=== PATIENT | female | born 1960 | race Caucasian/White ===

== ENCOUNTER 2017-01-06 06:26 | Day surgery (SDC) | payer MEDICAID ==
--- NOTE | 2017-01-06 06:04 | PCM.HP ---
H&P History of Present Illness - General Date of Service: 01/06/17 Admit Problem/Dx: chronic abdominal pain, diarrhea, weight loss, heartburn, Kent's esophagus, dysphagia, hx of tarry stools, fecal urgency, fecal incontinence, hx of greasy stools Source of Information: Patient History Limitations: Reports: No Limitations - History of Present Illness Initial Comments - Free Text/Narative: The patient is a 56-year-old female referred by Bertha Naik NP for colonoscopy, EGD to monitor Kent's esophagus The patient was initially evaluated on 12/01/16. She denies any changes to her medical history since that time. She did follow up with cardiology and [facility] as recommended. She has intermittent claudication and chronic chest pain. Dr. Choudhury in cardiology did no feel her chest pain was cardiac in origin as her recent stress test was negative for ischemia. She has a Occluded right superficial femoral artery (SFA) CTVS did not recommend surgery at this point, continued conservative therapy with Pletal was recommended. Last dose of Pletal was Wednesday. She continues to have diarrhea stools and lower abdominal pain. She denies reflux/heartburn, controlled with Nexium. She reports the chronic chest pain is actually improved. She did start smoking again 07/29 PPD. Her mood is better off the Chantix. she did finish all but 8 oz of the prep. she is having liquid colored stools. - Related Data Allergies/Adverse Reactions: Allergies Allergy/AdvReac Type Severity Reaction Status Date / Time No Known Allergies Allergy Verified 09/17/14 15:36 Home Medications: Home Meds Albuterol [Proair HFA] 1 - 2 puff INH Q4H 01/05/17 [History] Aspirin [Aspirin] 325 mg PO DAILY 01/05/17 [History] Cilostazol [Pletal] 100 mg PO BID 01/05/17 [History] Esomeprazole [NexIUM] 40 mg PO DAILY 01/05/17 [History] FLUoxetine HCl [Fluoxetine HCl] 10 mg PO DAILY 01/05/17 [History] Gabapentin [Gabapentin] 100 mg PO TID 01/05/17 [History] LORazepam [Ativan] 0.5 mg PO TID 01/05/17 [History] Nitroglycerin [Nitrostat] 0.4 mg SL ASDIRECTED PRN 01/05/17 [History] Past Medical History HEENT History: Reports: None Cardiovascular History: Reports: PVD, Other (See Below) Other Cardiovascular History: throbectomy and common femoral endarterectomy, heart cath, bradycardia, PAD Respiratory History: Reports: COPD Gastrointestinal History: Reports: Diverticulosis, Other (See Below) Other Gastrointestinal History: abdominal pain, diarrhea, weight loss, heartburn , kent's esophagus, dysphagia, tarry stools, fecal urgency and incontinence, greasy stools, ventral hernia Genitourinary History: Reports: Other (See Below) Other Genitourinary History: bladder dilation, kidney stones, ovarian fibroma 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 Musculoskeletal History: Reports: None Neurological History: Reports: None Psychiatric History: Reports: Other (See Below) Other Psychiatric History: nicotine addiction, panic attacks Endocrine/Metabolic History: Reports: None Hematologic History: Reports: None Immunologic History: Reports: None Oncologic (Cancer) History: Reports: None Dermatologic History: Reports: None - Past Surgical History Head Surgeries/Procedures: Reports: None GI Surgical History: Reports: Colonoscopy, EGD Social & Family History - Tobacco Use Smoking Status *Q: Current Every Day Smoker - Caffeine Use Caffeine Use: Reports: Coffee - Recreational Drug Use Recreational Drug Use: No Drug Use in Last 12 Months: No H&P Review of Systems - Review of Systems: Review Of Systems: See Below Free Text/Narrative: Has exertional chest pain and chest pain at rest. Has shortness of breath with chest pain. No history of any easy bleeding. Hx of easy bruising. No personal or familial history of clotting or bleeding disorders. No history of anesthetic complications. No history of familial anesthetic complications. NO: upper respiratory symptoms in the last two weeks. No history of anemia. No history of seizure or stroke. No history of fever, chills. Occasional night sweats. All other systems reviewed and were negative except as per history of present illness. General: Reports: No Symptoms. Denies: Fever, Chills HEENT: Reports: No Symptoms Pulmonary: Reports: No Symptoms Cardiovascular: Reports: No Symptoms, Other (see hpi) Gastrointestinal: Reports: Other (see hpi) Genitourinary: Reports: No Symptoms Musculoskeletal: Reports: No Symptoms Skin: Reports: No Symptoms Psychiatric: Reports: No Symptoms Neurological: Reports: No Symptoms Hematologic/Lymphatic: Reports: No Symptoms Immunologic: Reports: No Symptoms Exam - Exam Exam: See Below - Exam General: Alert, Oriented, Cooperative HEENT: No: Scleral Icterus Lungs: Clear to Auscultation, Normal Respiratory Effort Cardiovascular: Regular Rate, Regular Rhythm, Normal S1, Normal S2 Abdomen: Soft Back Exam: Normal Inspection, Full Range of Motion Extremities: Normal Inspection. No: Clubbing, Edema Skin: Warm, Dry, Intact Neuro Extensive - Mental Status: Alert, Oriented x3, Normal Mood/Affect, Normal Cognition, Memory Intact Psychiatric: Alert, Normal Affect, Normal Mood *Q Meaningful Use (ADM) - VTE *Q VTE Criteria *Q: - Stroke *Q Stroke Criteria *Q: - AMI *Q AMI Criteria *Q: - Problem List (1) Diarrhea SNOMED Code(s): 07492703 ICD Code: R19.7 - DIARRHEA, UNSPECIFIED Status: Acute Current Visit: Yes Qualifiers: Diarrhea type: unspecified type Qualified Code(s): R19.7 - Diarrhea, unspecified (2) Weight loss SNOMED Code(s): 257723637, 083813977 ICD Code: R63.4 - ABNORMAL WEIGHT LOSS Status: Acute Current Visit: Yes (3) Heartburn SNOMED Code(s): 20778833 ICD Code: R12 - HEARTBURN Status: Acute Current Visit: Yes (4) Barretts esophagus SNOMED Code(s): 612950881 ICD Code: K22.70 - KENT'S ESOPHAGUS WITHOUT DYSPLASIA Status: Acute Current Visit: Yes Qualifiers: Kent's esophagus type: without dysplasia Qualified Code(s): K22.70 - Kent's esophagus without dysplasia (5) Chronic abdominal pain SNOMED Code(s): 860707154 ICD Code: R10.9 - UNSPECIFIED ABDOMINAL PAIN; G89.29 - OTHER CHRONIC PAIN Status: Acute Current Visit: Yes Problem List Initiated/Reviewed/Updated: Yes Orders Last 24hrs: Active Orders 24 hr Category Date Time Status Peripheral IV Care [RC] . DIRECTED Care 01/06/17 07:00 Active Verify Patient Consent Obtain [RC] ASDIRECTED Care 01/06/17 07:00 Active Lactated Ringers [Ringers, Lactated] 1,000 ml Med 01/06/17 07:00 Active IV ASDIRECTED Lidocaine 1%/Sod Bicarbonate [Buffered Lidocaine 1% in Med 01/06/17 07:00 Active NS 8.4%] 0.25 ml IV ONETIME PRN Sodium Chloride 0.9% [Saline Flush] Med 01/06/17 07:00 Active 10 ml FLUSH ASDIRECTED PRN Medication Administration Instruction [OM.PC] Routine Oth 01/06/17 07:00 Ordered Peripheral IV Insertion Adult [OM.PC] Routine Oth 01/06/17 07:00 Ordered Medication Orders Lactated Ringer's (Ringers, Lactated) 1,000 mls @ 125 mls/hr IV ASDIRECTED ANGELI Lidocaine/Sodium Bicarbonate (Buffered Lidocaine 1% In Ns 8.4%) 0.25 ml IV ONETIME PRN PRN Reason: Prior to IV Start Sodium Chloride (Saline Flush) 10 ml FLUSH ASDIRECTED PRN PRN Reason: Keep Vein Open Assessment/Plan Comment:: 56yr female with chronic abdominal pain, diarrhea, weight loss, heartburn, Kent's esophagus, dysphagia, hx of tarry stools, fecal urgency, fecal incontinence, hx of greasy stools, need for diagnostic EGD and diagnostic colonoscopy Patient has exertional chest pain and shortness of breath. PLAN: We discussed performing a diagnostic EGD and diagnostic colonoscopy. We discussed the risks and benefits, including, pain, bleeding, infection, damage to surrounding structures, need for additional procedures and bowel perforation. This procedure will be done at [facility] due to cardiac hx, pending CTVS and cardiology evaluation for chest pain and claudication symptoms. This patient was evaluated with Dr. Keerthi Smith, plan formulated by Dr. Keerthi Smith. Halina Mcneill NP scribing for Dr. Keerthi Smith
[2017-01-06] MEDS ORDERED: Lactated Ringers 1,000 ML IV SCH (07:00)
[2017-01-06] MEDS ORDERED: Sodium Chloride 0.9% 10 ML Syringe FLUSH PRN (07:00)
[2017-01-06] MEDS ORDERED: Lidocaine 1%/Sod Bicarbonate in NS 8.4% 1 ML Syringe IV PRN (07:00)
--- NOTE | 2017-01-06 07:10 | PCM.PREANE ---
Preanesthetic Assessment - Anesthesia/Transfusion/Family Hx Anesthesia History: Prior Anesthesia Without Reaction Family History of Anesthesia Reaction: No Transfusion History: No Prior Transfusion(s) - Review of Systems General: No Symptoms Pulmonary: Wheezing (smokers cough) Cardiovascular: No Symptoms Gastrointestinal: No symptoms Neurological: No Symptoms Other: Reports: Anxiety - Physical Assessment NPO Status Date: 01/05/17 NPO Status Time: 22:00 Pulse: 73 O2 Sat by Pulse Oximetry: 96 Respiratory Rate: 20 Blood Pressure: 104/74 Temperature: 99 F Height: 4 ft 10 in Weight: 38.102 kg ASA Class: 2 Mental Status: Alert & Oriented x3 Airway Class: Mallampati = 1 Dentition: Reports: Dentures (top), Partial (bopttom) Thyro-Mental Finger Breadths: 3 Mouth Opening Finger Breadths: 3 ROM/Head Extension: Full Lungs: Clear to auscultation, Normal respiratory effort Cardiovascular: Regular Rate, Regular Rhythm - Imaging/EKG Impressions: 11/02/16 echo LV EF 60-65% 10/21/16 EKG SB 54 10/2016 cardiolite stress- no abnomality noted - Allergies Allergies/Adverse Reactions: Allergies Allergy/AdvReac Type Severity Reaction Status Date / Time No Known Allergies Allergy Verified 09/17/14 15:36 - Blood Blood Available: No - Acknowledgements Anesthesia Type Planned: MAC Pt an Appropriate Candidate for the Planned Anesthesia: Yes Alternatives and Risks of Anesthesia Discussed w Pt/Guardian: Yes Pt/Guardian Understands and Agrees with Anesthesia Plan: Yes PreAnesthesia Questionnaire HEENT History: Reports: None Cardiovascular History: Reports: PVD, Other (See Below) Other Cardiovascular History: throbectomy and common femoral endarterectomy, heart cath, bradycardia, PAD Respiratory History: Reports: COPD Gastrointestinal History: Reports: Diverticulosis, Other (See Below) Other Gastrointestinal History: abdominal pain, diarrhea, weight loss, heartburn , kent's esophagus, dysphagia, tarry stools, fecal urgency and incontinence, greasy stools, ventral hernia Genitourinary History: Reports: Other (See Below) Other Genitourinary History: bladder dilation, kidney stones, ovarian fibroma 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 Musculoskeletal History: Reports: None Neurological History: Reports: None Psychiatric History: Reports: Other (See Below) Other Psychiatric History: nicotine addiction, panic attacks Endocrine/Metabolic History: Reports: None Hematologic History: Reports: None Immunologic History: Reports: None Oncologic (Cancer) History: Reports: None Dermatologic History: Reports: None - Past Surgical History Head Surgeries/Procedures: Reports: None GI Surgical History: Reports: Colonoscopy, EGD Female Surgical History: Reports: Other (See Below) (right ovary removed and bladder stretches as a child) - SUBSTANCE USE Smoking Status *Q: Current Every Day Smoker Tobacco Use Within Last Twelve Months: Cigarettes Second Hand Smoke Exposure: Yes Days Per Week of Alcohol Use: 0 (rarely) Recreational Drug Use History: No - HOME MEDS Home Medications: Home Meds Albuterol [Proair HFA] 1 - 2 puff INH Q4H 01/05/17 [History] Aspirin [Aspirin] 325 mg PO DAILY 01/05/17 [History] Cilostazol [Pletal] 100 mg PO BID 01/05/17 [History] Esomeprazole [NexIUM] 40 mg PO DAILY 01/05/17 [History] FLUoxetine HCl [Fluoxetine HCl] 10 mg PO DAILY 01/05/17 [History] Gabapentin [Gabapentin] 100 mg PO TID 01/05/17 [History] LORazepam [Ativan] 0.5 mg PO TID 01/05/17 [History] Nitroglycerin [Nitrostat] 0.4 mg SL ASDIRECTED PRN 01/05/17 [History] Varenicline [Chantix] 1 mg PO BID 01/05/17 [History] - CURRENT (IN HOUSE) MEDS Current Meds: Current Medications Lactated Ringer's (Ringers, Lactated) 1,000 mls @ 125 mls/hr IV ASDIRECTED ANGELI Last Admin: 01/06/17 06:50 Dose: 125 mls/hr Lidocaine/Sodium Bicarbonate (Buffered Lidocaine 1% In Ns 8.4%) 0.25 ml IV ONETIME PRN PRN Reason: Prior to IV Start Last Admin: 01/06/17 06:49 Dose: 0.25 ml Sodium Chloride (Saline Flush) 10 ml FLUSH ASDIRECTED PRN PRN Reason: Keep Vein Open
[2017-01-06] MEDS ORDERED: Midazolam 1 MG/ML 2 ML SDV ONE (07:38)
[2017-01-06] MEDS ORDERED: Lidocaine 1% 4 ML ONE (07:38)
[2017-01-06] MEDS ORDERED: Propofol 200 MG/20 ML SDV ONE (07:38)
[2017-01-06] MEDS ORDERED: fentaNYL 100 MCG/2 ML SDV ONE (07:38)
--- NOTE | 2017-01-06 07:45 | PCM.OPNOTE ---
- General Post-Op/Procedure Note Date of Surgery/Procedure: 01/06/17 Operative Procedure(s): 1. Diagnostic EGD with cold forceps biopsy. 2. Diagnostic Colonoscopy to 60 cm with cold forceps biopsy and cold forceps polypectomy Pre Op Diagnosis: Chronic abdominal pain, chronic diarrhea, weight loss, heartburn, Hoffman's esophagus, dysphagia, history of tarry stools, fecal urgency, fecal incontinence, history of greasy stools Post-Op Diagnosis: Hoffman's esophagus, gastritis, intra-abdominal adhesive disease, diverticulosis, rectal polyp Anesthesia Technique: MAC Primary Surgeon: Keerthi Smith Anesthesia Provider: Galindo Rose Pathology: 1. Small bowel biopsy 2. Antral biopsy 3. Distal esophageal biopsy 4. Random colon biopsy from 60 cm and distal 5. Rectal polyp Fluid Replacement, Intraop: 600 (mL crystalloid ) EBL in mLs: 1 Complications: None Condition: Good Free Text/Narrative:: INDICATION FOR PROCEDURE: The patient is a 56-year-old woman who was referred to me by Dr. Klarissa Naik for evaluation for history of Hoffman's and chronic diarrhea with associated symptoms. Performing a diagnostic colonoscopy and EGD and the associated risks of the procedures had been discussed with the patient. The patient's last EGD and colonoscopy had been in 07/2014. The patient found these risks acceptable and agreed to proceed. DESCRIPTION OF PROCEDURE: The patient was taken to the operating room and placed in the left lateral decubitus position. After induction of adequate sedation, a bite block was placed. A standard Olympus gastroscope was inserted into the oropharynx and guided down the esophagus without difficulty. The gastroesophageal junction was appreciated at 36 cm from the teeth. There was no evidence of stricture or esophageal ulcerations. The scope was advanced into the stomach, and there was mild diffuse gastritis. The scope was passed into the proximal jejunum and the duodenum which were unremarkable. There were no petechiae or ulcerations. The proximal jejunum was grossly normal in appearance. Multiple cold forceps biopsies were obtained of the proximal jejunum and duodenum. The scope was withdrawn into the antrum, and additional cold forceps biopsies were obtained. The remainder of the gastric body was examined, and there were no additional abnormalities. The scope was retroflexed , and there was no evidence of hiatal hernia. The scope was straightened and withdrawn to the GE junction. Additional cold forceps biopsies were obtained of the distal esophagus at the GE junction. Hoffman's esophagus extended to 20 cm from the GE junction, a total length of 16 cm. Additional random biopsies were obtained at 30 cm from the teeth. The scope was withdrawn through the remainder of the esophagus and no further abnormalities were noted. The posterior oropharynx was grossly normal in appearance. The scope was fully withdrawn and attention was then turned to the colonoscopy. A digital rectal exam was performed which was unremarkable. A pediatric Olympus colonoscope was inserted into the rectum and with great difficulty was advanced to 60 cm from the anal verge. The patient's last colonoscopy in July 2014 was complete and had random biopsies throughout the colon. However , since that time, the patient has had resection of a pelvic mass in September 2014 and from the feeling of the advancement of the scope it was clear that there were intra-abdominal adhesions at about 20 cm. Although I was able to navigate past this, this area was causing significant restriction and I was not able to advance the scope past 60 cm without significant concern for perforation. The quality of the prep was good. There was no evidence of angiodysplasias. Mild diverticulosis was present. A tiny sessile rectal polyp was noted and was removed using cold forceps. Multiple random biopsies of the colon were obtained from 60 cm and distally using cold forceps. The scope was withdrawn into the rectum and retroflexed. There was no significant prominence of the patient's internal hemorrhoids. The scope was straightened, the colon was desufflated, and the scope was withdrawn. The patient was awakened from sedation and transferred to the recovery room in stable condition having tolerated the procedure well. POSTOPERATIVE PLAN: I discussed with the patient and her family my intraoperative findings and recommendations. The patient will follow up in approximately 7-10 days to discuss pathology and how their symptoms are progressing. The patient is to continue her Nexium daily. She may restart her Pletal tomorrow. I have asked the patient to follow a GERD\gastritis diet. She has been strongly encouraged to completely quit all tobacco products. I do think this would benefit not only her Hoffman's but her chronic diarrhea. A GI referral for ongoing management of Hoffman's and diarrhea would be appropriate. The patient is to call with any worsening of symptoms or questions prior to the appointment.
--- NOTE | 2017-01-06 08:18 | PCM48HPAN ---
Post Anesthesia Note - EVALUATION WITHIN 48HRS OF ANESTHETIC Vital Signs in Normal Range: Yes Patient Participated in Evaluation: Yes Respiratory Function Stable: Yes Airway Patent: Yes Cardiovascular Function Stable: Yes Hydration Status Stable: Yes Pain Control Satisfactory: Yes Nausea and Vomiting Control Satisfactory: Yes Mental Status Recovered: Yes
[2017-01-06 08:21] VITALS: BP 95/53
== END 2017-01-06 09:10 | disposition home or self-care (01) ==
LOC: JD.SDS 06:26
PROVIDERS: ATTEND Surgery
PROC: 0DB48ZX Excision of Esophagogastric Junction, Via Natural or Artificial Opening Endoscopic, Diagnostic (ICD-10-PCS; principal; 2017-01-06)
PROC: 0DB68ZX Excision of Stomach, Via Natural or Artificial Opening Endoscopic, Diagnostic (ICD-10-PCS; 2017-01-06)
PROC: 0DBP8ZX Excision of Rectum, Via Natural or Artificial Opening Endoscopic, Diagnostic (ICD-10-PCS; 2017-01-06)
DX: K22.70 Barrett's esophagus without dysplasia (principal); K62.1 Rectal polyp; K57.30 Diverticulosis of large intestine without perforation or abscess without bleeding; K56.5 Intestinal adhesions [bands] with obstruction (postinfection); R10.9 Unspecified abdominal pain; R15.9 Full incontinence of feces; K64.8 Other hemorrhoids; G89.29 Other chronic pain; R63.4 Abnormal weight loss; R15.2 Fecal urgency
CPT/HCPCS: 43239; 45331; J2250; J3010; J7120; 00810; J2704

== ENCOUNTER → 2017-12-16 | Day surgery (SDC) | payer MEDICAID ==
[~2017-12-16] MED LIST: LORazepam 1 MG Tab PO ONE
[2017-12-16] MEDS: Polymyxin B/Trimethoprim 10 ML Bottle EYELF SCH ×4 (11:35→13:15)
--- NOTE | 2017-12-16 11:37 | PCM.PREANE ---
Preanesthetic Assessment - Anesthesia/Transfusion/Family Hx Anesthesia History: Prior Anesthesia Without Reaction Family History of Anesthesia Reaction: No Transfusion History: No Prior Transfusion(s) - Review of Systems General: No Symptoms Pulmonary: Shortness of Breath Cardiovascular: Dyspnea on Exertion Gastrointestinal: No Symptoms Neurological: Seizure (high school) Other: Reports: Anxiety - Physical Assessment NPO Status Date: 12/15/17 NPO Status Time: 00:00 Pulse: 61 O2 Sat by Pulse Oximetry: 96 Respiratory Rate: 16 Blood Pressure: 129/79 Temperature: 36.7 C Height: 1.47 m Weight: 44.452 kg ASA Class: 3 Mental Status: Alert & Oriented x3 Dentition: Reports: Dentures, [place](s), Caries Thyro-Mental Finger Breadths: 2 Mouth Opening Finger Breadths: 3 ROM/Head Extension: Full Lungs: Clear to Auscultation, Normal Respiratory Effort, Decreased Breath Sounds Cardiovascular: Regular Rate, Irregular Rhythm - Allergies Allergies/Adverse Reactions: Allergies Allergy/AdvReac Type Severity Reaction Status Date / Time codeine Allergy Cannot Verified 12/15/17 15:00 Remember - Blood Blood Available: No Product(s) Available: None - Anesthesia Plan Pre-Op Medication Ordered: None - Acknowledgements Anesthesia Type Planned: MAC Pt an Appropriate Candidate for the Planned Anesthesia: Yes Alternatives and Risks of Anesthesia Discussed w Pt/Guardian: Yes Pt/Guardian Understands and Agrees with Anesthesia Plan: Yes PreAnesthesia Questionnaire HEENT History: Reports: None Cardiovascular History: Reports: PVD, Other (See Below) Other Cardiovascular History: throbectomy and common femoral endarterectomy, heart cath, bradycardia, PAD Respiratory History: Reports: COPD Gastrointestinal History: Reports: Diverticulosis, Other (See Below) Other Gastrointestinal History: abdominal pain, diarrhea, weight loss, heartburn , kent's esophagus, dysphagia, tarry stools, fecal urgency and incontinence, greasy stools, ventral hernia Genitourinary History: Reports: Other (See Below) Other Genitourinary History: bladder dilation, kidney stones, ovarian fibroma 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 Musculoskeletal History: Reports: None Neurological History: Reports: None Psychiatric History: Reports: Other (See Below) Other Psychiatric History: nicotine addiction, panic attacks Endocrine/Metabolic History: Reports: None Hematologic History: Reports: None Immunologic History: Reports: None Oncologic (Cancer) History: Reports: None Dermatologic History: Reports: None - Past Surgical History Head Surgeries/Procedures: Reports: None GI Surgical History: Reports: Colonoscopy, EGD - SUBSTANCE USE Smoking Status *Q: Current Every Day Smoker Tobacco Use Within Last Twelve Months: Cigarettes Second Hand Smoke Exposure: Yes Days Per Week of Alcohol Use: 0 Number of Drinks Per Day: 0 Total Drinks Per Week: 0 Recreational Drug Use History: No - HOME MEDS Home Medications: Home Meds Albuterol [Proair HFA] 1 - 2 puff INH Q4H 01/05/17 [History] Aspirin 325 mg PO DAILY 01/05/17 [History] Esomeprazole [NexIUM] 40 mg PO DAILY 01/05/17 [History] FLUoxetine HCl [Fluoxetine HCl] 10 mg PO DAILY 01/05/17 [History] LORazepam [Ativan] 0.5 mg PO TID 01/05/17 [History] Nitroglycerin [Nitrostat] 0.4 mg SL ASDIRECTED PRN 01/05/17 [History] Calcitonin,Rothschild,Synthetic [Calcitonin-Rothschild] 1 spray NASBOTH ASDIRECTED 12/15 [History] Pantoprazole Sodium [Protonix] 40 mg PO DAILY 12/15/17 [History] Pregabalin [Lyrica] 75 mg PO TID 12/15/17 [History] Sucralfate 1 gm PO QID 12/15/17 [History] - CURRENT (IN HOUSE) MEDS Current Meds: Current Medications Brimonidine Tartrate (Alphagan 0.2% Ophth Soln) 0 ml EYELF ASDIRECTED ANGELI Stop: 12/16/17 18:00 Cefuroxime Sodium (Zinacef) 0 mg EYELF ASDIRECTED ANGELI Stop: 12/16/17 18:00 Lidocaine HCl (Xylocaine-Mpf 1%) 0 ml INJECT ASDIRECTED ANGELI Stop: 12/16/17 18:00 Phenylephrine HCl (Rodolfo-Synephrine 2.5% Ophth Soln) 0 ml EYELF ASDIRECTED ANGELI Stop: 12/16/17 18:00 Pilocarpine HCl (Pilocar 4% Ophth Soln) 0 ml EYELF ASDIRECTED ANGELI Stop: 12/16/17 18:00 Polymyxin/Trimethoprim Sulfate (Polytrim Ophth Soln) 0 ml EYELF ASDIRECTED ANGELI Stop: 12/16/17 18:00 Tetracaine HCl (Tetracaine 0.5% Steri-Unit Sonali) 0 ml EYELF ASDIRECTED ANGELI Stop: 12/16/17 18:00 Tropicamide (Mydriacyl 1% Ophth Soln) 0 ml EYELF ASDIRECTED ANGELI Stop: 12/16/17 18:00
[2017-12-16] MEDS: Brimonidine 0.2% Ophth Soln 5 ML Bottle EYELF SCH ×4 (11:40→13:15)
[2017-12-16] MEDS: Phenylephrine 2.5% Ophth Soln 2 ML Bot EYELF SCH ×6 (11:47→12:49)
[2017-12-16] MEDS: Tropicamide 1% Ophth Soln 3 ML Bottle EYELF SCH ×4 (12:02→12:30)
[2017-12-16] MEDS: Lidocaine 1% PF 2 ML SDV INJECT SCH ×2 (12:25→13:03)
[2017-12-16] MEDS: Pilocarpine 4% Ophth Soln 15 ML Bot EYELF SCH ×2 (12:26→13:15)
[2017-12-16] MEDS: Tetracaine HCl/PF 0.5% 4 ML Bottle EYELF SCH ×3 (12:26→13:03)
[2017-12-16] MEDS: Cefuroxime 10 MG/ML SYRINGE EYELF SCH ×2 (12:26→13:13)
--- NOTE | 2017-12-16 13:16 | PCM48HPAN ---
Post Anesthesia Note - EVALUATION WITHIN 48HRS OF ANESTHETIC Patient Participated in Evaluation: Yes Respiratory Function Stable: Yes Airway Patent: Yes Cardiovascular Function Stable: Yes Hydration Status Stable: Yes Pain Control Satisfactory: Yes Nausea and Vomiting Control Satisfactory: Yes Mental Status Recovered: Yes
[2017-12-16 13:33] VITALS: BP 136/84
== END ==
LOC: JD.SDS 11:23
PROVIDERS: ATTEND Ophthalmology
DX: H25.813 Combined forms of age-related cataract, bilateral (principal); H40.033 Anatomical narrow angle, bilateral; H02.831 Dermatochalasis of right upper eyelid; H02.834 Dermatochalasis of left upper eyelid; H35.363 Drusen (degenerative) of macula, bilateral; H35.3131 Nonexudative age-related macular degeneration, bilateral, early dry stage; K22.70 Barrett's esophagus without dysplasia; M81.0 Age-related osteoporosis without current pathological fracture; J98.4 Other disorders of lung; J44.9 Chronic obstructive pulmonary disease, unspecified; R07.9 Chest pain, unspecified; F17.210 Nicotine dependence, cigarettes, uncomplicated; F41.9 Anxiety disorder, unspecified; Z79.82 Long term (current) use of aspirin; Z79.899 Other long term (current) drug therapy; Z98.890 Other specified postprocedural states
CPT/HCPCS: A9270-GY; C1780; J0697; J2001

== ENCOUNTER 2018-01-13 10:57 | Day surgery (SDC) | payer MEDICAID ==
[~2018-01-13 10:57] MED LIST changes: +ALPRAZolam 0.25 MG Tab PO ONE; -LORazepam 1 MG Tab PO ONE
[2018-01-13] MEDS: Polymyxin B/Trimethoprim 10 ML Bottle EYERT SCH ×4 (11:15→13:18)
[2018-01-13] MEDS: Brimonidine 0.2% Ophth Soln 5 ML Bottle EYERT SCH ×4 (11:20→13:18)
[2018-01-13] MEDS: Phenylephrine 2.5% Ophth Soln 2 ML Bot EYERT SCH ×6 (11:26→12:55)
[2018-01-13] MEDS ORDERED: Lidocaine 1%/Sod Bicarbonate in NS 8.4% 1 ML Syringe IDERM PRN (11:28)
[2018-01-13] MEDS ORDERED: Sodium Chloride 0.9% 10 ML Syringe FLUSH PRN (11:28)
[2018-01-13] MEDS ORDERED: Lactated Ringers 1,000 ML IV SCH (11:30)
[2018-01-13] MEDS: Tropicamide 1% Ophth Soln 3 ML Bottle EYERT SCH ×4 (11:31→12:24)
[2018-01-13] MEDS ORDERED: fentaNYL 100 MCG/2 ML SDV ONE (11:57)
[2018-01-13] MEDS ORDERED: Propofol 200 MG/20 ML SDV ONE (11:57)
[2018-01-13] MEDS ORDERED: Lidocaine 1% 0 ML ONE (11:58)
[2018-01-13] MEDS: Lidocaine 1% PF 2 ML SDV INJECT SCH ×2 (12:27→13:06)
[2018-01-13] MEDS: Cefuroxime 10 MG/ML SYRINGE EYERT SCH ×2 (12:27→13:17)
[2018-01-13] MEDS: Tetracaine HCl/PF 0.5% 4 ML Bottle EYERT SCH ×3 (12:27→13:06)
[2018-01-13] MEDS: Pilocarpine 4% Ophth Soln 15 ML Bot EYERT SCH ×2 (12:28→13:18)
[2018-01-13] MEDS ORDERED: Midazolam 1 MG/ML 2 ML SDV ONE (12:33)
--- NOTE | 2018-01-13 13:25 | PCM48HPAN ---
Post Anesthesia Note - EVALUATION WITHIN 48HRS OF ANESTHETIC Vital Signs in Normal Range: Yes Patient Participated in Evaluation: Yes Respiratory Function Stable: Yes Airway Patent: Yes Cardiovascular Function Stable: Yes Hydration Status Stable: Yes Pain Control Satisfactory: Yes Nausea and Vomiting Control Satisfactory: Yes Mental Status Recovered: Yes Pulse Rate: 58 SaO2: 96 Resp Rate: 16 Temperature: 98.4 F Blood Pressure: 129/73
[2018-01-13 14:04] VITALS: BP 136/72
== END 2018-01-13 13:59 | disposition home or self-care (01) ==
LOC: JD.SDS 10:57
PROVIDERS: ATTEND Ophthalmology
DX: H40.031 Anatomical narrow angle, right eye (principal); H52.31 Anisometropia; M81.0 Age-related osteoporosis without current pathological fracture; F17.200 Nicotine dependence, unspecified, uncomplicated; Z98.42 Cataract extraction status, left eye; Z96.1 Presence of intraocular lens; Z79.82 Long term (current) use of aspirin; Z79.899 Other long term (current) drug therapy; Z88.5 Allergy status to narcotic agent
CPT/HCPCS: 66984; A9270; C1780; J0697; J2001; J2250; J7120; J2704; J3010

== ENCOUNTER 2020-03-03 12:04 | Emergency (ER) | payer BC, MEDICAID ==
[2020-03-03 12:24] VITALS: BP 115/75; PULSE 69
[2020-03-03] MEDS ORDERED: Ondansetron 4 MG/2 ML SDV IVPUSH ONE (12:58)
[2020-03-03] MEDS ORDERED: Tamsulosin 0.4 MG Cap.ER PO ONE (12:58)
[2020-03-03] MEDS ORDERED: Ketorolac 30 MG/ML SDV IVPUSH STA (12:58)
[2020-03-03] MEDS ORDERED: HYDROmorphone 0.5 MG/0.5 ML Syringe IVPUSH ONE (12:59)
[2020-03-03] MEDS ORDERED: Sodium Chloride 0.9% 1,000 ML IV SCH (13:00)
--- NOTE | 2020-03-03 13:03 | EDM.PDOC ---
ED HPI GENERAL MEDICAL PROBLEM - General Chief Complaint: Genitourinary Problem Stated Complaint: KIDNEY PAIN Time Seen by Provider: 03/03/20 12:20 Source of Information: Reports: Patient History Limitations: Reports: No Limitations - History of Present Illness INITIAL COMMENTS - FREE TEXT/NARRATIVE: Ms. Beckett is a pleasant 59-year-old woman with a past medical history signifi cant for renal lithiasis, who now presents the ED stating that she chronically has hematuria, for reasons unknown. She states that she was seen by her Urologist days ago, on 03/01/2020, and that she is scheduled for a CT urogram on 03/20/2020. She states that she has had relatively mild lower back pain since yesterday, but that such pain is common for her. She developed sudden-onset severe left flank pain around 03:00 this morning, and states that it has been progressively getting worse. It radiates to her left abdomen and down her left lower extremity. She describes a pressure sensation when she urinates today, but denies dysuria, per se. She has not had a fever, nausea, vomiting, constipation, or diarrhea. She states that her current symptoms are similar to previous kidney stones, most recently about 1 year ago. Here in the ED, the patient is found to be hemodynamically stable, afebrile, saturating 95% on room air. The patient states that she gets a UTI about twice a year. She also reports a history of constipation, status post a colonoscopy on 02/22/2020, which found no blockages whatsoever. Other than these symptoms, however, the patient denies recent fever, chills, sore throat, ear pain, nasal or sinus congestion, cough, dyspnea, chest pain, palpitations, nausea, vomiting, diarrhea, abdominal pain, urinary symptoms, recent weight gain or weight loss, recent bloody bowel movements or black bowel movements, recent joint aches, headaches, or rashes. The patient's PCP is Ashleigh Smart NP. Her Urologist is Dr. Vivek Vogt. Her Blocker And Polisher is Dr. Fabián Choudhury. Her Cardiovascular Surgeon is Dr. Merlin Luis, at . Her Infectious Disease specialist is Dr. Ryann Pereira. Her General Surgeon's midlevel is Halina Mcneill NP. Left Flank Pain Score (Numeric/FACES): 7 - Related Data Allergies Allergy/AdvReac Type Severity Reaction Status Date / Time codeine Allergy Cannot Verified 12/15/17 15:00 Remember Home Meds: Home Meds Albuterol [Proair HFA] 1 - 2 puff INH Q4H 01/05/17 [History] Aspirin 325 mg PO DAILY 01/05/17 [History] Nitroglycerin [Nitrostat] 0.4 mg SL ASDIRECTED PRN 01/05/17 [History] Pantoprazole Sodium [Protonix] 40 mg PO DAILY 12/15/17 [History] Pregabalin [Lyrica] 75 mg PO TID 12/15/17 [History] Fluticasone Propionate [Flonase] 50 mcg NASBOTH DAILY 03/03/20 [History] Isosorbide Mononitrate [Imdur] 30 mg PO DAILY 03/03/20 [History] Ondansetron [Zofran] 4 mg SL Q4HR 03/03/20 [History] Simethicone 125 mg PO Q6HR 03/03/20 [History] Umeclidinium Paia [Incruse Ellipta*] 62.5 mcg INH DAILY 03/03/20 [History] atorvaSTATin [Lipitor] 40 mg PO BEDTIME 03/03/20 [History] Past Medical History Cardiovascular History: Reports: Arrhythmia, PVD Respiratory History: Reports: COPD (suspected, not tested) Gastrointestinal History: Reports: Diverticulosis, GERD (with Hoffman esophagus) Genitourinary History: Reports: Renal Calculus Musculoskeletal History: Reports: Osteoporosis Psychiatric History: Reports: Anxiety, Panic Attack - Infectious Disease History Infectious Disease History: Reports: Hepatitis C (untreated) - Past Surgical History Cardiovascular Surgical History: Reports: Vascular Surgery (Right femoral-pop bypass, 2017) GI Surgical History: Reports: Colonoscopy (x 3 or 4), EGD (x 3 or 4) Female Surgical History: Reports: Section (x 1), Oophorectomy (right), Other (See Below) (Bladder suspension) Social & Family History - Tobacco Use Smoking Status *Q: Current Every Day Smoker Years of Tobacco use: 43 Packs/Tins Daily: 0.5 Packs/Tins Daily Comment: Down from 1 ppd - Caffeine Use Caffeine Use: Reports: Coffee - Alcohol Use Alcohol Use History: Yes Alcohol Use Frequency: Socially - Recreational Drug Use Recreational Drug Use: Yes Drug Use in Last 12 Months: Yes Recreational Drug Type: Reports: Cocaine (last snorted when 19 yrs old), LSD (A berenice) (last took as a teenager), Marijuana/Hashish (smokes daily), Methamphetamine (last smoked in 2009), Psilocybin (Mushrooms) (last took in HS) - Living Situation & Occupation Living situation: Reports: (), Alone 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 ED EXAM, RENAL/ - Physical Exam Exam: See Below Exam Limited By: No Limitations General Appearance: Alert, No Apparent Distress, Thin Eye Exam: Bilateral Eye: EOMI, Normal Inspection Ears: Normal External Exam, Hearing Grossly Normal Nose: Normal Inspection Throat/Mouth: Normal Inspection, Normal Lips, Normal Voice, No Airway Compromise Head: Atraumatic, Normocephalic Neck: Normal Inspection, Full Range of Motion Respiratory/Chest: No Respiratory Distress, Lungs Clear, Normal Breath Sounds, No Accessory Muscle Use Cardiovascular: Normal Peripheral Pulses, Regular Rate, Rhythm, No Edema, No Gallop, No JVD, No Murmur, No Rub GI/Abdominal: Normal Bowel Sounds, Soft, No Organomegaly, No Distention, No Abnormal Bruit, No Mass, Tender (Mild, left lower quadrant only. Completely nontender elsewhere.) (Female) Exam: Deferred Rectal (Female) Exam: Deferred Back Exam: Normal Inspection, Full Range of Motion, CVA Tenderness (L). No: CVA Tenderness (R) Extremities: Normal Inspection, Normal Range of Motion, No Pedal Edema, Normal Capillary Refill Neurological: Alert, Oriented, Normal Cognition, No Motor/Sensory Deficits Psychiatric: Normal Affect Skin Exam: Warm, Dry, Intact, Normal Color, No Rash Course - Vital Signs Last Recorded V/S: Last Vital Signs Temp 37.0 C 03/03/20 12:19 Pulse 69 03/03/20 12:19 Resp 16 03/03/20 12:19 BP 115/75 03/03/20 12:19 Pulse Ox 95 03/03/20 12:19 - Orders/Labs/Meds Orders: Active Orders 24 hr Category Date Time Status Sodium Chloride 0.9% [Normal Saline] 1,000 ml Med 03/03/20 13:00 Active IV ASDIRECTED Medication Orders Sodium Chloride (Normal Saline) 1,000 mls @ 150 mls/hr IV ASDIRECTED ANGELI Last Admin: 03/03/20 13:21 Dose: 150 mls/hr Documented by: [employer] Labs: Laboratory Tests 03/03/20 Range/Units 13:35 Urine Color Light yellow (Yellow) Urine Appearance Clear (Clear) Urine pH 7.0 (5.0-8.0) Ur Specific [place] 1.015 (1.005-1.030) Urine Protein Negative (Negative) Urine Glucose (UA) Negative (Negative) Urine Ketones Negative (Negative) Urine Occult Blood 2+ H (Negative) Urine Nitrite Negative (Negative) Urine Bilirubin Negative (Negative) Urine Urobilinogen 0.2 (0.2-1.0) Ur Leukocyte Esterase Negative (Negative) Urine RBC 5-10 H (0-5) /hpf Urine WBC Not seen (0-5) /hpf Ur Squamous Epith Cells Not seen (0-5) /hpf Urine Bacteria Rare (FEW) /hpf Urine Mucus Rare (FEW) /hpf Meds: Medications Generic Name Dose Route Start Last Admin Trade Name Freq PRN Reason Stop Dose Admin Sodium Chloride 1,000 mls @ 150 mls/hr 03/03/20 13:00 03/03/20 13:21 Normal Saline IV 150 mls/hr ASDIRECTED ANGELI Administration Discontinued Medications Generic Name Dose Route Start Last Admin Trade Name Freq PRN Reason Stop Dose Admin Hydromorphone HCl 0.5 mg 03/03/20 12:59 03/03/20 13:25 Dilaudid IVPUSH 03/03/20 13:00 0.5 mg ONETIME ONE Administration Ketorolac Tromethamine 30 mg 03/03/20 12:58 03/03/20 13:22 Toradol IVPUSH 03/03/20 12:59 30 mg ONETIME STA Administration Ondansetron HCl 4 mg 03/03/20 12:58 03/03/20 13:21 Zofran IVPUSH 03/03/20 12:59 4 mg ONETIME ONE Administration Tamsulosin HCl 0.4 mg 03/03/20 12:58 03/03/20 13:27 Flomax PO 08/09/20 12:59 0.4 mg ONETIME ONE Administration - Re-Assessments/Exams Free Text/Narrative Re-Assessment/Exam: 03/03/20 12:59 As above, the patient had mild lower back pain last night, which may have been due to her chronic lower back pain, then developed non-onset severe left flank pain with some radiation to her left side and down her left lower extremity around 03:00 this morning. On examination, she has mild tenderness to the left lower quadrant, and considerable left CVA tenderness. I have ordered a urinalysis by quick catheter, since the patient does not feel that she can provide an adequate clean-catch, and a CT scan of her abdomen and pelvis without contrast. In the meantime, the patient will be given oral Flomax, IV Toradol, IV Dilaudid, IV Zofran, and IV fluid. 03/03/20 14:41 The patient's urinalysis is remarkable for 2+ occult blood and 5-10 RBCs, but is otherwise unremarkable. CT of the abdomen and pelvis without contrast is read by Dr. Juárez as: 1. No renal calculi, ureteral dilatation or definite ureteral stone is appreciated. 2. Fat-containing right lower abdominal wall hernia. 3. Nothing acute is otherwise appreciated is appreciated [sic] on this noncontrast study. 03/03/20 15:56 Test results discussed with the patient. As above, today's work-up shows a small amount of hematuria, but no explanation for her pain and tenderness. The patient is willing to go home, but she is afraid that the pain will come back. Because I do not know the cause of her pain, I cannot speculate as to whether or not it will come back. I agreed to talk to the Hospitalist to see if she would be willing to place the patient in observation. 03/03/20 16:00 Asked to discuss the case with Dr. Escoto. I am told that she is currently tied up, and will call us back when she is available. 03/03/20 16:[address] Escoto here in the ED. She reviewed the CT images and feels that the patient's pain may be related to her constipation. She estimated that the patient would get relief after a bowel cleanse and several bowel movements. 03/03/20 16:[address] Escoto discussed with the patient. The patient requested a note to be off work tomorrow. Departure - Departure Time of Disposition: 16:45 Disposition: Home, Self-Care 01 Condition: Good Clinical Impression: Acute left flank pain - Discharge Information *PRESCRIPTION DRUG MONITORING PROGRAM REVIEWED*: Not Applicable *COPY OF PRESCRIPTION DRUG MONITORING REPORT IN PATIENT ALICJA: Not Applicable Referrals: Merlin Luis DO [Ordering Only Provider] - Ryann Pereira MD [Ordering Only Provider] - Vivek Vogt MD [Ordering Only Provider] - Ashleigh Smart NP [Primary Care Provider] - Fabián Choudhury DO [Ordering Only Provider] - Halina Mcneill NP [Nurse Practitioner] - Forms: ED Department Discharge, ED Return to Work/School Form Additional Instructions: You were seen in the emergency room after developing a sudden-onset left flank pain early this morning. Work-up in the ER included a urinalysis and a CT scan of your abdomen and pelvis without contrast. The urinalysis showed a small amount of blood, but no sign of infection. The CT scan found no stones or evidence of recent stones. Your case was discussed with the hospitalist, who declined to place him in observation. Sure that you stay adequately hydrated. Gatorade is best. For a bowel cleanse, consider taking [id number] milk of magnesia, or a stool softener, such as Dulcolax. A note for work has been provided to you. If your symptoms fail to improve, please follow-up with your PCP, Ashleigh Smart NP. If any other problems, please do not hesitate to return to the ER. Sepsis Event Note (ED) - Evaluation Sepsis Screening Result: No Definite Risk - Focused Exam Vital Signs: Vital Signs Temp Pulse Resp BP Pulse Ox 03/03/20 12:19 37.0 C 69 16 115/75 95 - My Orders Last 24 Hours: My Active Orders 03/03/20 13:00 Sodium Chloride 0.9% [Normal Saline] 1,000 ml IV ASDIRECTED - Assessment/Plan Last 24 Hours: My Active Orders 03/03/20 13:00 Sodium Chloride 0.9% [Normal Saline] 1,000 ml IV ASDIRECTED
--- NOTE | 2020-03-03 14:26 | CT ---
CT abdomen and pelvis Technique: Multiple axial sections were obtained from above the dome of the diaphragm inferiorly through the pubic symphysis. Intravenous and oral contrast was not utilized. Study has been performed as a ureteral stone protocol. Reconstructed coronal and sagittal images were obtained. Comparison: No prior CT abdomen or pelvis exam. Findings: Ureters show no dilatation. No abnormal calcifications are seen along the course of the ureters. No renal calculi are appreciated. Visualized lung bases show nothing acute. Noncontrast appearance of the liver and spleen shows no focal parenchymal abnormality. Adrenal glands show no nodule. Pancreas shows no discrete abnormality. Gallbladder contains no calcified gallstones. Aorta shows no aneurysm. No retroperitoneal adenopathy or mesenteric abnormalities are seen. Right sided lower abdominal wall hernia seen containing fat. No pelvic mass or adenopathy is seen. No free fluid is seen. Appendix felt to be visualized and is normal. Bone window settings were reviewed which shows no acute osseous finding. Impression: 1. No renal calculi, ureteral dilatation or definite ureteral stone is appreciated. 2. Fat-containing right lower abdominal wall hernia. 3. Nothing acute is otherwise appreciated is appreciated on this noncontrast study. Diagnostic code #2 This report was dictated in MDT
== END 2020-03-03 17:55 | disposition home or self-care (01) ==
LOC: JD.ED 12:04
DX: R10.32 Left lower quadrant pain (principal); K21.9 Gastro-esophageal reflux disease without esophagitis; F17.210 Nicotine dependence, cigarettes, uncomplicated; Z88.5 Allergy status to narcotic agent; Z79.82 Long term (current) use of aspirin; Z79.899 Other long term (current) drug therapy; Z98.890 Other specified postprocedural states
CPT/HCPCS: 74176; 81001; 96374; 96375; 99284; A9270; J1170; J1885; J2405; J7030

== ENCOUNTER 2020-04-26 15:14 | Emergency (ER) | payer BC, MEDICAID ==
[2020-04-26 15:45] VITALS: BP 114/88; PULSE 95
[2020-04-26] MEDS ORDERED: Ondansetron 4 MG/2 ML SDV IVPUSH ONE (16:26)
[2020-04-26] MEDS ORDERED: Sodium Chloride 0.9% 1,000 ML IV ONE (16:26)
[2020-04-26] MEDS ORDERED: Sodium Chloride 0.9% 10 ML Syringe FLUSH PRN (16:26)
[2020-04-26] MEDS ORDERED: Acetaminophen/oxyCODONE 325-5 MG Tab PO ONE ×2 (16:27→21:06)
--- NOTE | 2020-04-26 16:39 | EDM.PDOC ---
ED HPI GENERAL MEDICAL PROBLEM - General Chief Complaint: Genitourinary Problem Stated Complaint: BLADDER SURGERY PAIN AND BLEEDING Time Seen by Provider: 04/26/20 16:11 Source of Information: Reports: Patient History Limitations: Reports: No Limitations - History of Present Illness INITIAL COMMENTS - FREE TEXT/NARRATIVE: Patient is a 59-year-old female who presents the ED complaining of painful urination, general malaise, weakness, after undergoing bladder cancer surgery this past Wednesday with Dr. Bowser. They remove the bladder cancer per patient via cystoscopy. Patient also had chemotherapy at that time to which she described as injecting into her bladder. Since then she has had some intermittent pain with urination but notes as of the past day this painful urination has increased. She has some blood within the urine as well. Her appetite has not been the best as of today. In addition she has chronic abdominal pain with recent history of hernia repair in the right inguinal region that occurred 11 days prior to the bladder cancer removal. She has 3 incisions to the left side of her abdomen that are scabbed over with no redness, swelling, purulent drainage. Pain waxes and wanes. She has been taken Tylenol with no significant relief. Last taken on Wednesday. She had 1 hydro-codon post bladder cancer removal. There is been no fever. She is had no regular bowel movements and notes her last bowel movement was yesterday described a small stefan. She does not feel constipated. She has no diarrhea. Past medical history of peripheral arterial disease with graft to the right leg. CAD, Kent's esophagus, GERD, chronic abdominal pain, bladder cancer, COPD, osteoporosis. Current medications albuterol, simethicone, Protonix, nitro, Imdur, Flonase, ASA, and Incruse. Lower Bladder Pain Score (Numeric/FACES): 7 - Related Data Allergies Allergy/AdvReac Type Severity Reaction Status Date / Time codeine Allergy Cannot Verified 04/26/20 15:45 Remember Home Meds: Home Meds Albuterol [Proair HFA] 1 - 2 puff INH Q4H 01/05/17 [History] Aspirin 325 mg PO DAILY 01/05/17 [History] Nitroglycerin [Nitrostat] 0.4 mg SL ASDIRECTED PRN 01/05/17 [History] Pantoprazole Sodium [Protonix] 40 mg PO DAILY 12/15/17 [History] Fluticasone Propionate [Flonase] 50 mcg NASBOTH DAILY 03/03/20 [History] Isosorbide Mononitrate [Imdur] 30 mg PO DAILY 03/03/20 [History] Ondansetron [Zofran] 4 mg SL Q4HR 03/03/20 [History] Simethicone 125 mg PO Q6HR 03/03/20 [History] Umeclidinium [place] [Incruse Ellipta*] 62.5 mcg INH DAILY 03/03/20 [History] Nitrofurantoin Monohyd/M-Cryst [Macrobid 100 mg Capsule] 100 mg PO BID #9 capsule 04/26/20 [Rx] Past Medical History HEENT History: Reports: None Cardiovascular History: Reports: Arrhythmia, PVD Other Cardiovascular History: throbectomy and common femoral endarterectomy, heart cath, bradycardia, PAD Respiratory History: Reports: COPD Gastrointestinal History: Reports: Diverticulosis, GERD Other Gastrointestinal History: abdominal pain, diarrhea, weight loss, heartburn, kent's esophagus, dysphagia, tarry stools, fecal urgency and incontinence, greasy stools, ventral hernia Genitourinary History: Reports: Renal Calculus, Other (See Below) Other Genitourinary History: bladder surgery [employer]PER[employer] History: Reports: None Musculoskeletal History: Reports: Osteoporosis Neurological History: Reports: None Psychiatric History: Reports: Anxiety, Panic Attack Other Psychiatric History: nicotine addiction, panic attacks Endocrine/Metabolic History: Reports: None Hematologic History: Reports: None Immunologic History: Reports: None Oncologic (Cancer) History: Reports: None Dermatologic History: Reports: None - Infectious Disease History Infectious Disease History: Reports: Hepatitis C - Past Surgical History Head Surgeries/Procedures: Reports: None Cardiovascular Surgical History: Reports: Vascular Surgery GI Surgical History: Reports: Colonoscopy, EGD, Hernia, Abdominal Female Surgical History: Reports: Section, Oophorectomy, Other (See Below) Social & Family History - Tobacco Use Smoking Status *Q: Current Every Day Smoker Years of Tobacco use: 30 Packs/Tins Daily: 0.2 - Caffeine Use Caffeine Use: Reports: Coffee - Recreational Drug Use Recreational Drug Use: Yes Drug Use in Last 12 Months: Yes Recreational Drug Type: Reports: Marijuana/Hashish Recreational Drug Use Frequency: Daily - Living Situation & Occupation Living situation: Reports: (), Alone 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 Denies: Fever, Chills, Night Sweats Respiratory: Denies: Shortness of Breath, Wheezing, Pleuritic Chest Pain, Cough, Sputum, Hemoptysis Cardiovascular: Denies: Chest Pain, Dyspnea on Exertion, Lightheadedness, Palpitations, Syncope GI/Abdominal: Reports: Abdominal Pain, Decreased Appetite, Nausea. Denies: Black Stool, Bloody Stool, Constipation, Diarrhea, Difficulty Swallowing, Distension, Flatus, Melena, Vomiting : Reports: Dysuria, Hematuria. Denies: Discharge, Flank Pain, Frequency, Incontinence, Irregular Menses, Urgency, Urinary Retention Musculoskeletal: Reports: Back Pain (Chronic unchanged) Skin: Reports: No Symptoms Neurological: Reports: No Symptoms ED EXAM, GI/ABD - Physical Exam Exam: See Below Exam Limited By: No Limitations General Appearance: Alert, WD/WN, No Apparent Distress Ears: Hearing Grossly Normal Nose: Normal Inspection Throat/Mouth: Normal Inspection, Normal Oropharynx, Normal Voice, No Airway Compromise Head: Atraumatic, Normocephalic Neck: Normal Inspection, Supple Respiratory/Chest: No Respiratory Distress, Lungs Clear, Normal Breath Sounds, No Accessory Muscle Use, Chest Non-Tender Cardiovascular: Normal Peripheral Pulses, Regular Rate, Rhythm, No Murmur GI/Abdominal Exam: Normal Bowel Sounds, Soft, No Organomegaly, No Distention, Tender (left lower quadrant) Extremities: Normal Inspection, Normal Range of Motion, Non-Tender, No Pedal Edema Neurological: Alert, Oriented, CN II-XII Intact, Normal Cognition Psychiatric: Normal Affect, Normal Mood Skin Exam: Warm, Dry, Intact, Normal Color, No Rash Comments: 3 laparoscopic incisions to the left side of her abdomen scabbed over with no redness, swelling, drainage noted. Course - Vital Signs Last Recorded V/S: Last Vital Signs Temp 98.3 F 04/26/20 15:37 Pulse 95 04/26/20 15:37 Resp 18 04/26/20 15:37 BP 114/88 04/26/20 15:37 Pulse Ox 94 L 04/26/20 15:37 - Orders/Labs/Meds Orders: Active Orders 24 hr Category Date Time Status Abdomen Pelvis w Cont [CT] Stat Exams 04/26/20 18:04 Taken CULTURE URINE [RM] Stat Lab 04/26/20 17:25 Results Peripheral IV Insertion Adult [OM.PC] Routine Oth 04/26/20 16:26 Ordered Labs: Laboratory Tests 04/26/20 04/26/20 04/26/20 Range/Units 16:30 16:30 17:25 WBC 10.37 H (3.98-10.04) K/mm3 RBC 4.83 (3.98-5.22) M/mm3 Hgb 14.9 (11.2-15.7) gm/dl Hct 44.2 (34.1-44.9) % MCV 91.5 (79.4-94.8) fl MCH 30.8 (25.6-32.2) pg MCHC 33.7 (32.2-35.5) g/dl RDW Std Deviation 46.5 H (36.4-46.3) fL Plt Count 286 (182-369) K/mm3 MPV 8.6 L (9.4-12.3) fl Neutrophils % (Manual) 73 H (40-60) % Band Neutrophils % 0 (0-10) % Lymphocytes % (Manual) 21 (20-40) % Atypical Lymphs % 6 % Monocytes % (Manual) 0 L (2-10) % Eosinophils % (Manual) 0 L (0.7-5.8) % Basophils % (Manual) 0 L (0.1-1.2) Platelet Estimate Adequate RBC Morph Comment Normal Sodium 138 (136-145) mEq/L Potassium 4.1 (3.5-5.1) mEq/L Chloride 102 (98-107) mEq/L Carbon Dioxide 26 (21-32) mEq/L Anion Gap 14.1 (5-15) BUN 24 H (7-18) mg/dL Creatinine 0.7 (0.55-1.02) mg/dL Est Cr Clr Drug Dosing 53.32 mL/min Estimated GFR (MDRD) > 60 (>60) mL/min BUN/Creatinine Ratio 34.3 H (14-18) Glucose 125 H (74-106) mg/dL Calcium 9.3 (8.5-10.1) mg/dL Total Bilirubin 0.5 (0.2-1.0) mg/dL AST 12 L (15-37) U/L ALT 18 (14-59) U/L Alkaline Phosphatase 41 L (46-116) U/L C-Reactive Protein 4.1 H* (<1.0) mg/dL Total Protein 7.5 (6.4-8.2) g/dl Albumin 3.5 (3.4-5.0) g/dl Globulin 4.0 gm/dL Albumin/Globulin Ratio 0.9 L (1-2) Urine Color Maria Ines H (Yellow) Urine Appearance Slt cloudy H (Clear) Urine pH 5.5 (5.0-8.0) Ur Specific Manquin 1.025 (1.005-1.030) Urine Protein 1+ H (Negative) Urine Glucose (UA) Negative (Negative) Urine Ketones Negative (Negative) Urine Occult Blood 3+ H (Negative) Urine Nitrite Negative (Negative) Urine Bilirubin 1+ H (Negative) Urine Urobilinogen 1.0 (0.2-1.0) Ur Leukocyte Esterase Trace H (Negative) Urine RBC 20-30 H (0-5) /hpf Urine WBC 10-20 H (0-5) /hpf Ur Epithelial Cells Not seen (0-5) /hpf Amorphous Sediment Many H (NOT SEEN) /hpf Urine Bacteria Few (FEW) /hpf Urine Mucus Not seen (FEW) /hpf Meds: Medications Discontinued Medications Generic Name Dose Route Start Last Admin Trade Name Freq PRN Reason Stop Dose Admin Ceftriaxone Sodium 1 gm 04/26/20 21:08 04/27/20 05:52 Rocephin IM 04/26/20 21:09 Not Given ONETIME ONE Ceftriaxone Sodium 1 gm/ 0 gm 04/26/20 21:31 04/26/20 21:54 Lidocaine HCl 2.1 ml IM 04/26/20 21:32 2.1 inj ASDIRECTED ONE Administration Diatrizoate Meglum/Diatrizoate Sod 120 ml 04/26/20 19:45 04/26/20 20:07 Gastrografin 37% PO 04/26/20 19:46 120 ml ONETIME ONE Administration Sodium Chloride 1,000 mls @ 500 mls/hr 04/26/20 16:26 04/26/20 16:42 Normal Saline IV 04/26/20 18:25 500 mls/hr ONETIME ONE Administration Iopamidol 100 ml 04/26/20 19:45 04/26/20 20:07 Isovue-300 (61%) IVPUSH 04/26/20 19:46 100 ml ONETIME ONE Administration Nitrofurantoin Macrocrystals 100 mg 04/26/20 21:05 04/26/20 21:53 Macrobid PO 04/26/20 21:06 100 mg ONETIME ONE Administration Ondansetron HCl 4 mg 04/26/20 16:26 04/26/20 16:42 Zofran IVPUSH 04/26/20 16:27 4 mg ONETIME ONE Administration Oxycodone/Acetaminophen 1 tab 04/26/20 16:27 04/26/20 16:42 Percocet 325-5 Mg PO 04/26/20 16:28 1 tab ONETIME ONE Administration Oxycodone/Acetaminophen 1 tab 04/26/20 21:06 04/26/20 21:53 Percocet 325-5 Mg PO 04/26/20 21:07 1 tab ONETIME ONE Administration Sodium Chloride 10 ml 04/26/20 16:26 04/26/20 16:42 Saline Flush FLUSH 10 ml ASDIRECTED PRN Administration Keep Vein Open Sodium Chloride 10 ml 04/26/20 19:45 04/26/20 20:07 Saline Flush FLUSH 04/26/20 19:46 10 ml ONETIME ONE Administration - Re-Assessments/Exams Free Text/Narrative Re-Assessment/Exam: Vitals on initial examination: BP 114/88, pulse 95, temperature is 98.3, O2 sats 94% on room air. Patient does not appear in acute distress. On exam patient does have 3 surgical incisions from previous laparoscopic surgery scabbed over with no signs for infection. She has pain to the suprapubic region and left lower quadrant with palpation. Urine sample provided by patient positive for blood. She denies any history of kidney stones. She has had a poor appetite with poor intake as a recent. We will go ahead and start IV fluids 1 L bolus 500 mils per hour, Zofran 4 mg IVP, Percocet 53 25 1 tab p.o. Labs to be obtained include a CBC, CHEM 14, CRP, and urinalysis. Will look at obtaining a CT of the abdomen and pelvis with history of abdominal surgery and LLQ abdominal pain. Will await for Cr prior to ordering. Labs reviewed: White blood cell count 10.37, platelet count 08/27/1985, slightly elevated neutrophil percentage of 73 with no left shift. Sodium potassium normal. AG normal. Creatinine 0.7. CRP is 4.1. UA slightly cloudy, protein 1+, 3+ occult blood, 1+ bilirubin, trace leukocyte Estrace, RBCs 20-30, urine WBCs 10-20, and bacteria few. CT abdomen pelvis without contrast impression: CT abdomen and pelvis with contrast impression: Urinary bladder is incompletely distended. Asymmetrical thickening of the left lateral bladder wall measuring up to 1.0 cm in thickness. Focus of the intraluminal bladder air, which may be related to recent instrumentation and/or cystitis. Interval development of foci of air and small amount of fluid within the fat of the left extra peritoneal pelvis, abutting the inferior lateral left bladder wall, with no definite walled off collection. Additional nonacute findings as above. 04/26/20 21:07 Reassessment, patients vitals are stable. Pain to LLQ has improved. Discussed CT findings with patient. Will treat patient for cystitis with macrobid 100mg PO x 1 and prescription to follow. Rocephin 1 gram IM. In addition ordered percocet 5-325mg, 1 tab PO. Patient will followup with urologists if dysuria persists. Return precautions discussed with patient. Patient voiced her understanding. Discharge instructions as document. Departure - Departure Time of Disposition: 21:10 Disposition: Home, Self-Care 01 Condition: Good Clinical Impression: UTI, Urinary tract infectious disease, Hematuria due to cystitis - Discharge Information Prescriptions: Nitrofurantoin Monohyd/M-Cryst [Macrobid 100 mg Capsule] 100 mg PO BID #9 capsule Instructions: Urinary Tract Infection, Adult, Antibiotic Medicine, Adult, Hemorrhagic Cystitis Referrals: PCP,None [Ordering Only Provider] - Forms: ED Department Discharge Additional Instructions: Take the full course of Macrobid as prescribed 1 tab twice a day for the next 5 days. Push the fluids. Utilize Tylenol for pain. No driving this evening since receiving a sedative medication. Please follow-up with urology upon completion of Macrobid if symptoms persist. Please return to the E.D. for any new or worsening symptoms as discussed. Sepsis Event Note (ED) - Evaluation Sepsis Screening Result: No Definite Risk - My Orders Last 24 Hours: My Active Orders 04/26/20 16:26 Peripheral IV Insertion Adult [OM.PC] Routine 04/26/20 17:25 CULTURE URINE [RM] Stat 04/26/20 18:04 Abdomen Pelvis w Cont [CT] Stat - Assessment/Plan Last 24 Hours: My Active Orders 04/26/20 16:26 Peripheral IV Insertion Adult [OM.PC] Routine 04/26/20 17:25 CULTURE URINE [RM] Stat 04/26/20 18:04 Abdomen Pelvis w Cont [CT] Stat
[2020-04-26] MEDS ORDERED: Diatrizoate Meglumine/Diatrizoate Sodium 37% 120 ML Bottle PO ONE (19:45)
[2020-04-26] MEDS ORDERED: Iopamidol 612 MG/ML 100 ML Bottle IVPUSH ONE (19:45)
[2020-04-26] MEDS ORDERED: Sodium Chloride 0.9% 10 ML Syringe FLUSH ONE (19:45)
[2020-04-26] MEDS ORDERED: Nitrofurantoin Monohydrate/Macrocrystalline 100 MG Cap PO ONE (21:05)
[2020-04-26] MEDS ORDERED: cefTRIAXone 1 GM, Lidocaine 1% 2.1 ML IM ONE ×2 (21:31)
[2020-04-26] MEDS: cefTRIAXone 1 GM Vial IM ONE (21:53)
[2020-04-27] MEDS: cefTRIAXone 1 GM Vial IM ONE (05:52)
== END 2020-04-26 22:00 | disposition home or self-care (01) ==
LOC: JD.ED 15:14
DX: N30.91 Cystitis, unspecified with hematuria (principal); J44.9 Chronic obstructive pulmonary disease, unspecified; K21.9 Gastro-esophageal reflux disease without esophagitis; F17.210 Nicotine dependence, cigarettes, uncomplicated; Z88.5 Allergy status to narcotic agent; Z79.82 Long term (current) use of aspirin; Z79.899 Other long term (current) drug therapy
CPT/HCPCS: 36415; 74177; 80053; 81001; 85007; 85027; 86140; 87086; 96361; 96372; 96374; 99284; A9270; J0696; J2001; J2405; J7030; Q9963; Q9967; 99283

== ENCOUNTER → 2021-04-15 | Day surgery (SDC) | payer BC, MEDICAID ==
[2021-04-15] MEDS: Brimonidine 0.2% Ophth Soln 5 ML Bottle EYEBOTH SCH ×3 (12:09→13:17)
[2021-04-15] MEDS: Phenylephrine 2.5% Ophth Soln 2 ML Bot EYEBOTH SCH ×5 (12:12→12:49)
[2021-04-15] MEDS: Tropicamide 1% Ophth Soln 15 ML Bottle EYEBOTH SCH ×4 (12:15→12:35)
== END ==
LOC: JD.SDS 11:28
PROVIDERS: ATTEND Ophthalmology
DX: H26.493 Other secondary cataract, bilateral (principal); H35.3134 Nonexudative age-related macular degeneration, bilateral, advanced atrophic with subfoveal involvement; H35.363 Drusen (degenerative) of macula, bilateral; H40.003 Preglaucoma, unspecified, bilateral; H16.103 Unspecified superficial keratitis, bilateral; H16.223 Keratoconjunctivitis sicca, not specified as Sjogren's, bilateral; J44.9 Chronic obstructive pulmonary disease, unspecified; M81.0 Age-related osteoporosis without current pathological fracture; F17.210 Nicotine dependence, cigarettes, uncomplicated; Z79.899 Other long term (current) drug therapy; Z98.890 Other specified postprocedural states; Z88.5 Allergy status to narcotic agent; Z96.1 Presence of intraocular lens

== ENCOUNTER 2023-03-14 16:53 | Inpatient (IN) | payer MEDICARE, MEDICAID ==
[2023-03-14] MEDS ORDERED: Sodium Chloride 0.9% 10 ML Syringe FLUSH PRN (17:08)
[2023-03-14] MEDS ORDERED: Albuterol/Ipratropium 3.0-0.5 MG/3 ML Neb Soln NEB ONE ×2 (17:08→18:45)
[2023-03-14] MEDS ORDERED: methylPREDNISolone Sodium Succinate 125 MG/2 ML SDV IVPUSH ONE (17:09)
[2023-03-14] MEDS ORDERED: Ondansetron 4 MG/2 ML SDV IVPUSH ONE (17:13)
[2023-03-14] MEDS ORDERED: methylPREDNISolone Sodium Succinate 125 MG/2 ML SDV IM ONE (17:15)
[2023-03-14] MEDS ORDERED: Ondansetron 4 MG Tab.DIS PO ONE (17:25)
[2023-03-14 17:48] LABS: BASOPHILS ABSOLUTE AUTO 0.02 K/mm3 (0.01-0.08); BASOPHILS PERCENT AUTO 0.2 % (0.1-1.2); EOSINOPHILS ABSOLUTE AUTO 0.37 K/mm3 (0.04-0.36); EOSINOPHILS PERCENT AUTO 4.1 (0.7-5.8); IMMATURE GRAN ABSOLUTE AUTO 0.02 K/mm3 (0.00-0.10); IMMATURE GRAN PERCENT AUTO 0.2 % (<=1.0); LYMPHOCYTES PERCENT AUTO 37.6 % (19.3-51.7); MEAN CORPUSCULAR HEMOGLOBIN 30.5 pg (25.6-32.2); MEAN CORPUSCULAR HGB CONC 33.3 g/dl (32.2-35.5); MEAN CORPUSCULAR VOLUME 91.6 fl (79.4-94.8); MEAN PLATELET VOLUME 8.7 fl (9.4-12.3); MONOCYTES ABSOLUTE AUTO 0.84 K/mm3 (0.24-0.36); MONOCYTES PERCENT AUTO 9.3 % (4.7-12.5); NEUTROPHILS PERCENT AUTO 48.6 % (34.0-71.1); PLATELET COUNT,PLT 281 K/mm3 (182-369); RED BLOOD CELL COUNT 5.24 M/mm3 (3.98-5.22); WHITE BLOOD CELL COUNT,WBC 9.05 K/mm3 (3.98-10.04)
[2023-03-14 18:19] LABS: A/G RATIO 0.9 (1-2); ALBUMIN 3.8 g/dl (3.4-5.0); ANION GAP 11.5 (5-15); BILIRUBIN TOTAL 0.3 mg/dL (0.2-1.0); BUN/CREATININE RATIO 17.1 (14-18); CALCIUM 9.4 mg/dL (8.5-10.1); CREATININE 0.7 mg/dL (0.55-1.02); EST CRCL DRUG DOSING (CG) 56.2 mL/min; POTASSIUM,K 4.5 mEq/L (3.5-5.1)
[2023-03-14] MEDS ORDERED: Acetaminophen 325 MG Tab PO PRN (21:39)
[2023-03-14] MEDS: Albuterol 0.083% 2.5 MG/3 ML Neb Soln NEB SCH (21:47)
[2023-03-15] MEDS: Albuterol 0.083% 2.5 MG/3 ML Neb Soln NEB SCH ×2 (02:54→06:19)
[2023-03-15] MEDS: guaiFENesin/Dextromethorphan 100-10 MG/5 ML Soln 5 ML Cup PO PRN ×2 (04:33→20:22)
[2023-03-15] MEDS ORDERED: Albuterol/Ipratropium 3.0-0.5 MG/3 ML Neb Soln ONE (06:30)
[2023-03-15] MEDS ORDERED: Pantoprazole 40 MG Tab.CR PO SCH (07:00)
[2023-03-15] MEDS: predniSONE 20 MG Tab PO SCH (07:56)
[2023-03-15] MEDS: Rosuvastatin 10 MG Tab PO SCH (08:00)
[2023-03-15] MEDS: Aspirin 81 MG Tab.Chew PO SCH (08:00)
[2023-03-15] MEDS: Doxycycline Monohydrate 100 MG Cap PO SCH ×2 (08:01→20:18)
[2023-03-15] MEDS: Enoxaparin 40 MG/0.4 ML Syringe SUBCUT SCH (08:36)
[2023-03-15] MEDS: Albuterol/Ipratropium 3.0-0.5 MG/3 ML Neb Soln NEB SCH ×3 (08:42→20:50)
[2023-03-15] MEDS ORDERED: ASPIRIN 325 MG PO SCH (09:00)
[2023-03-15] MEDS ORDERED: Non-Formulary Medication 1 Each (Levocetirizine Dihydrochloride [Xyzal] 5 MG Tablet) PO SCH (21:00)
[2023-03-16] MEDS: Albuterol/Ipratropium 3.0-0.5 MG/3 ML Neb Soln NEB SCH ×3 (05:19→20:36)
[2023-03-16] MEDS: Pantoprazole 40 MG Tab.CR PO SCH (05:32)
[2023-03-16] MEDS: predniSONE 20 MG Tab PO SCH (06:42)
[2023-03-16 06:50] LABS: ALBUMIN 3.7 g/dl (3.4-5.0); ANION GAP 16.4 (5-15); BILIRUBIN TOTAL 0.2 mg/dL (0.2-1.0); BUN/CREATININE RATIO 27.5 (14-18); CALCIUM 9.2 mg/dL (8.5-10.1); CREATININE 0.8 mg/dL (0.55-1.02); EST CRCL DRUG DOSING (CG) 48.81 mL/min; POTASSIUM,K 4.4 mEq/L (3.5-5.1); PROTEIN TOTAL,TP 7.5 g/dl (6.4-8.2)
[2023-03-16] MEDS ORDERED: Dextromethorphan HBr 30 MG/5 ML Susp ML PO PRN (07:34)
[2023-03-16] MEDS: Aspirin 81 MG Tab.Chew PO SCH (08:19)
[2023-03-16] MEDS: Doxycycline Monohydrate 100 MG Cap PO SCH ×2 (08:19→20:16)
[2023-03-16] MEDS: guaiFENesin 600 MG Tab.ER PO SCH ×2 (08:20→20:16)
[2023-03-16] MEDS: Rosuvastatin 10 MG Tab PO SCH (08:20)
[2023-03-16] MEDS: Enoxaparin 40 MG/0.4 ML Syringe SUBCUT SCH (08:24)
[2023-03-16] MEDS: Albuterol 0.083% 2.5 MG/3 ML Neb Soln NEB PRN (08:57)
[2023-03-16] MEDS ORDERED: Polyethylene Glycol 3350 Powder 17 GM Packet PO PRN (10:49)
[2023-03-16] MEDS: Acetylcysteine 20% 200 MG/ML 4 ML Nebulizer Soln SDV NEB SCH (20:38)
[2023-03-17] MEDS: predniSONE 20 MG Tab PO SCH (06:13)
[2023-03-17] MEDS: Pantoprazole 40 MG Tab.CR PO SCH (06:13)
[2023-03-17] MEDS: Albuterol/Ipratropium 3.0-0.5 MG/3 ML Neb Soln NEB SCH ×2 (06:17→13:41)
[2023-03-17] MEDS: Acetylcysteine 20% 200 MG/ML 4 ML Nebulizer Soln SDV NEB SCH (06:17)
[2023-03-17] MEDS: Rosuvastatin 10 MG Tab PO SCH (08:03)
[2023-03-17] MEDS: guaiFENesin 600 MG Tab.ER PO SCH ×2 (08:03→20:06)
[2023-03-17] MEDS: Doxycycline Monohydrate 100 MG Cap PO SCH ×2 (08:03→20:06)
[2023-03-17] MEDS: Aspirin 81 MG Tab.Chew PO SCH (08:03)
[2023-03-17] MEDS: Enoxaparin 40 MG/0.4 ML Syringe SUBCUT SCH (08:03)
[2023-03-17] MEDS: Albuterol 0.083% 2.5 MG/3 ML Neb Soln NEB PRN (13:41)
[2023-03-17] MEDS: Albuterol 0.083% 2.5 MG/3 ML Neb Soln NEB SCH (20:15)
[2023-03-18] MEDS: Albuterol 0.083% 2.5 MG/3 ML Neb Soln NEB SCH ×2 (05:55→13:25)
[2023-03-18] MEDS: Pantoprazole 40 MG Tab.CR PO SCH (06:20)
[2023-03-18] MEDS: predniSONE 20 MG Tab PO SCH (06:20)
[2023-03-18] MEDS: guaiFENesin 600 MG Tab.ER PO SCH (08:02)
[2023-03-18] MEDS: Rosuvastatin 10 MG Tab PO SCH (08:02)
[2023-03-18] MEDS: Enoxaparin 40 MG/0.4 ML Syringe SUBCUT SCH (08:02)
[2023-03-18] MEDS: Aspirin 81 MG Tab.Chew PO SCH (08:03)
[2023-03-18] MEDS: Doxycycline Monohydrate 100 MG Cap PO SCH (08:03)
[2023-03-18 12:54] VITALS: BP 122/90; PULSE 95
== END 2023-03-18 15:25 | disposition home or self-care (01) | DRG 192 ==
LOC: JD.ED 16:53 → JD.MS 19:23
PROVIDERS: ADMIT Internal Medicine; ATTEND Internal Medicine
DX: J44.1 Chronic obstructive pulmonary disease with (acute) exacerbation (principal); I10 Essential (primary) hypertension; E78.5 Hyperlipidemia, unspecified; G89.29 Other chronic pain; R12 Heartburn; H40.9 Unspecified glaucoma; H35.30 Unspecified macular degeneration; K21.9 Gastro-esophageal reflux disease without esophagitis; N18.9 Chronic kidney disease, unspecified; Z20.822 Contact with and (suspected) exposure to COVID-19; M81.0 Age-related osteoporosis without current pathological fracture; M54.9 Dorsalgia, unspecified; F41.9 Anxiety disorder, unspecified; Z98.49 Cataract extraction status, unspecified eye; Z98.890 Other specified postprocedural states; Z79.51 Long term (current) use of inhaled steroids; Z87.891 Personal history of nicotine dependence; Z79.899 Other long term (current) drug therapy; Z79.82 Long term (current) use of aspirin; Z88.5 Allergy status to narcotic agent
CPT/HCPCS: 36415; 71045; 71045-26; 80053; 83880; 84484; 85025; 93005; 93010; 94640; 94667; 94668; 94760; 94761; 96372; 99284; 99285; A9270-GY; J1650; J2930; J3490; J7512; J7620-GY; U0002

== ENCOUNTER 2023-06-07 16:48 | Emergency (ER) | payer MEDICARE, MEDICAID ==
[2023-06-07] MEDS ORDERED: HYDROmorphone 0.5 MG/0.5 ML Syringe IVPUSH ONE (17:48)
[2023-06-07] MEDS ORDERED: Sodium Chloride 0.9% 10 ML Syringe FLUSH PRN (17:49)
[2023-06-07] MEDS ORDERED: Ondansetron 4 MG/2 ML SDV IVPUSH ONE (17:49)
[2023-06-07 18:18] LABS: BASOPHILS ABSOLUTE AUTO 0.1 K/mm3 (0.0-0.2); BASOPHILS PERCENT AUTO 0.7 % (0.0-1.0); EOSINOPHILS ABSOLUTE AUTO 0.3 K/mm3 (0.0-0.4); EOSINOPHILS PERCENT AUTO 3.1 % (0.0-6.0); HEMATOCRIT 36.6 % (37.0-47.0); HEMOGLOBIN 11.8 gm/dl (12.0-16.0); IMMATURE GRAN ABSOLUTE AUTO 0.06 K/mm3 (0.00-0.05); IMMATURE GRAN PERCENT AUTO 0.6 % (0.0-0.4); LYMPHOCYTES ABSOLUTE AUTO 2.6 K/mm3 (1.0-4.8); MEAN CORPUSCULAR HEMOGLOBIN 29.1 pg (28.0-32.0); MEAN CORPUSCULAR HGB CONC 32.2 g/dl (32.0-36.0); MEAN CORPUSCULAR VOLUME 90.1 fl (83.0-99.0); MEAN PLATELET VOLUME 8.5 fl (9.4-12.3); MONOCYTES ABSOLUTE AUTO 1.2 K/mm3 (0.0-0.8); NEUTROPHILS ABSOLUTE AUTO 6.5 K/mm3 (1.8-7.7); NEUTROPHILS PERCENT AUTO 60.6 % (41.0-71.0); PLATELET COUNT,PLT 548 K/mm3 (150-400); RED BLOOD CELL COUNT 4.06 M/mm3 (4.10-5.30); WHITE BLOOD CELL COUNT,WBC 10.76 K/mm3 (3.9-11.3)
[2023-06-07 18:36] LABS: A/G RATIO 0.6 (1-2); ALANINE AMINOTRANSFERASE,ALT 10 U/L (14-59); ALBUMIN 2.8 g/dl (3.4-5.0); ALKALINE PHOSPHATASE 51 U/L (46-116); ANION GAP 13.3 (5-15); ASPARTATE AMNIOTRANSFERASE,AST 13 U/L (15-37); BILIRUBIN TOTAL 0.1 mg/dL (0.2-1.0); BLOOD UREA NITROGEN,BUN 17 mg/dL (7-18); BUN/CREATININE RATIO 21.3 (14-18); C-REACTIVE PROTEIN 10.4 mg/dL (<1.0); CALCIUM 9.4 mg/dL (8.5-10.1); CARBON DIOXIDE,CO2 27 mEq/L (21-32); CHLORIDE,CL 101 mEq/L (98-107); CREATININE 0.8 mg/dL (0.55-1.02); EST CRCL DRUG DOSING (CG) 51.82 mL/min; ESTIMATED GFR 84 mL/min (>60); GLUCOSE RANDOM 111 mg/dL (70-99); POTASSIUM,K 4.3 mEq/L (3.5-5.1); PROTEIN TOTAL,TP 7.5 g/dl (6.4-8.2); SODIUM,NA 137 mEq/L (136-145)
[2023-06-07 18:42] LABS: TROPONIN I HIGH SENSITIVITY < 4 pg/mL (<=51)
[2023-06-07 19:41] VITALS: BP 108/69
[2023-06-07] MEDS ORDERED: methylPREDNISolone Sodium Succinate 125 MG/2 ML SDV IVPUSH ONE (19:50)
[2023-06-07] MEDS ORDERED: traMADol 50 MG Tab PO ONE (19:51)
[2023-06-07 19:58] VITALS: PULSE 73
== END 2023-06-07 20:30 | disposition home or self-care (01) ==
LOC: JD.ED 16:48
DX: R07.81 Pleurodynia (principal); J44.9 Chronic obstructive pulmonary disease, unspecified; K21.9 Gastro-esophageal reflux disease without esophagitis; N18.9 Chronic kidney disease, unspecified; Z87.891 Personal history of nicotine dependence; Z88.5 Allergy status to narcotic agent; Z79.899 Other long term (current) drug therapy; Z79.82 Long term (current) use of aspirin
CPT/HCPCS: 36415; 71046; 80053; 84484; 85025; 85379; 86140; 93005; 96374; 96375; 99285; A9270; J1170; J2405; J2930; J3490; 93010; 99284

== ENCOUNTER 2023-06-18 19:58 | Emergency (ER) | payer MEDICARE, MEDICAID ==
[2023-06-18] MEDS ORDERED: LORazepam 2 MG/ML SDV IVPUSH ONE (20:36)
[2023-06-18] MEDS ORDERED: methylPREDNISolone Sodium Succinate 125 MG/2 ML SDV IVPUSH ONE (20:36)
[2023-06-18 21:00] LABS: BASOPHILS PERCENT AUTO 0.2 % (0.0-1.0); HEMATOCRIT 38.8 % (37.0-47.0); HEMOGLOBIN 12.6 gm/dl (12.0-16.0); IMMATURE GRAN ABSOLUTE AUTO 0.16 K/mm3 (0.00-0.05); IMMATURE GRAN PERCENT AUTO 1.1 % (0.0-0.4); LYMPHOCYTES ABSOLUTE AUTO 1.5 K/mm3 (1.0-4.8); LYMPHOCYTES PERCENT AUTO 10.4 % (24.0-44.0); MEAN CORPUSCULAR HEMOGLOBIN 29.4 pg (28.0-32.0); MEAN CORPUSCULAR HGB CONC 32.5 g/dl (32.0-36.0); MEAN CORPUSCULAR VOLUME 90.4 fl (83.0-99.0); MEAN PLATELET VOLUME 8.2 fl (9.4-12.3); MONOCYTES PERCENT AUTO 6.7 % (0.0-8.0); NEUTROPHILS ABSOLUTE AUTO 11.5 K/mm3 (1.8-7.7); NEUTROPHILS PERCENT AUTO 81.6 % (41.0-71.0); PLATELET COUNT,PLT 399 K/mm3 (150-400); RED BLOOD CELL COUNT 4.29 M/mm3 (4.10-5.30); WHITE BLOOD CELL COUNT,WBC 14.11 K/mm3 (3.9-11.3)
[2023-06-18 21:26] LABS: A/G RATIO 0.6 (1-2); ALANINE AMINOTRANSFERASE,ALT 9 U/L (14-59); ALBUMIN 2.8 g/dl (3.4-5.0); ALKALINE PHOSPHATASE 50 U/L (46-116); ANION GAP 15.9 (5-15); ASPARTATE AMNIOTRANSFERASE,AST 7 U/L (15-37); BILIRUBIN TOTAL 0.2 mg/dL (0.2-1.0); BLOOD UREA NITROGEN,BUN 18 mg/dL (7-18); CALCIUM 9.2 mg/dL (8.5-10.1); CARBON DIOXIDE,CO2 24 mEq/L (21-32); CHLORIDE,CL 104 mEq/L (98-107); ESTIMATED GFR 64 mL/min (>60); GLUCOSE RANDOM 322 mg/dL (70-99); POTASSIUM,K 3.9 mEq/L (3.5-5.1); PROTEIN TOTAL,TP 7.2 g/dl (6.4-8.2); SODIUM,NA 140 mEq/L (136-145)
[2023-06-18] MEDS ORDERED: Meclizine 25 MG Tab PO ONE (22:13)
[2023-06-19 07:04] VITALS: BP 102/67; PULSE 67
== END 2023-06-19 08:10 | disposition home or self-care (01) ==
LOC: JD.ED 19:58
DX: U07.1 COVID-19 (principal); J44.1 Chronic obstructive pulmonary disease with (acute) exacerbation; N18.9 Chronic kidney disease, unspecified; K21.9 Gastro-esophageal reflux disease without esophagitis; Z79.82 Long term (current) use of aspirin; Z79.899 Other long term (current) drug therapy; Z88.5 Allergy status to narcotic agent
CPT/HCPCS: 36415; 71046; 71046-26; 80053; 84484; 85025; 85379; 96374; 96375; 99284; 99285-25; A9270-GY; J2060; J2930

== ENCOUNTER 2023-08-20 18:18 | Emergency (ER) | payer MEDICARE, MEDICAID ==
[2023-08-20] MEDS ORDERED: Sodium Chloride 0.9% 10 ML Syringe FLUSH PRN (18:39)
[2023-08-20] MEDS ORDERED: Diclofenac Sodium 1% Gel 100 GM Tube TOP ONE (19:12)
[2023-08-20 19:17] LABS: BASOPHILS ABSOLUTE AUTO 0.1 K/mm3 (0.0-0.2); BASOPHILS PERCENT AUTO 0.4 % (0.0-1.0); EOSINOPHILS ABSOLUTE AUTO 0.3 K/mm3 (0.0-0.4); EOSINOPHILS PERCENT AUTO 1.6 % (0.0-6.0); HEMATOCRIT 39.1 % (37.0-47.0); HEMOGLOBIN 12.3 gm/dl (12.0-16.0); IMMATURE GRAN ABSOLUTE AUTO 0.11 K/mm3 (0.00-0.05); IMMATURE GRAN PERCENT AUTO 0.7 % (0.0-0.4); LYMPHOCYTES ABSOLUTE AUTO 5.2 K/mm3 (1.0-4.8); LYMPHOCYTES PERCENT AUTO 31.1 % (24.0-44.0); MEAN CORPUSCULAR HGB CONC 31.5 g/dl (32.0-36.0); MEAN CORPUSCULAR VOLUME 88.9 fl (83.0-99.0); MEAN PLATELET VOLUME 8.2 fl (9.4-12.3); MONOCYTES ABSOLUTE AUTO 1.3 K/mm3 (0.0-0.8); NEUTROPHILS ABSOLUTE AUTO 9.7 K/mm3 (1.8-7.7); NEUTROPHILS PERCENT AUTO 58.2 % (41.0-71.0); PLATELET COUNT,PLT 603 K/mm3 (150-400); WHITE BLOOD CELL COUNT,WBC 16.66 K/mm3 (3.9-11.3)
[2023-08-20 19:54] LABS: A/G RATIO 0.6 (1-2); ALANINE AMINOTRANSFERASE,ALT 15 U/L (14-59); ALBUMIN 2.9 g/dl (3.4-5.0); ALKALINE PHOSPHATASE 57 U/L (46-116); ANION GAP 13.7 (5-15); ASPARTATE AMNIOTRANSFERASE,AST 6 U/L (15-37); BILIRUBIN TOTAL 0.2 mg/dL (0.2-1.0); BLOOD UREA NITROGEN,BUN 17 mg/dL (7-18); BUN/CREATININE RATIO 18.9 (14-18); C-REACTIVE PROTEIN 4.4 mg/dL (<1.0); CALCIUM 9.6 mg/dL (8.5-10.1); CARBON DIOXIDE,CO2 32 mEq/L (21-32); CHLORIDE,CL 101 mEq/L (98-107); CREATININE 0.9 mg/dL (0.55-1.02); EST CRCL DRUG DOSING (CG) 46.55 mL/min; ESTIMATED GFR 72 mL/min (>60); GLUCOSE RANDOM 118 mg/dL (70-99); POTASSIUM,K 3.7 mEq/L (3.5-5.1); PROTEIN TOTAL,TP 7.7 g/dl (6.4-8.2); SODIUM,NA 143 mEq/L (136-145)
[2023-08-20 19:56] LABS: TROPONIN I HIGH SENSITIVITY < 4 pg/mL (<=51)
[2023-08-20 19:57] LABS: TSH 4.147 uIU/mL (0.358-3.74)
[2023-08-20 20:02] LABS: CORONAVIRUS COVID-19 NAA NEGATIVE (NEGATIVE); INFLUENZA A NAA NEGATIVE (NEGATIVE)
[2023-08-20 20:16] LABS: T4 FREE 1.03 ng/dL (0.76-1.46)
[2023-08-20] MEDS ORDERED: cefTRIAXone 1 GM in Sodium Chloride 0.9% 100 ML IV ONE (20:16)
[2023-08-20] MEDS ORDERED: Ketorolac 30 MG/ML SDV IVPUSH ONE (20:16)
[2023-08-20 20:46] LABS: APPEARANCE,URINE CLEAR (Clear); BILIRUBIN,URINE NEGATIVE (Negative); COLOR,URINE YELLOW (Yellow); GLUCOSE,URINE NEGATIVE (Negative); KETONES,URINE NEGATIVE (Negative); LEUKOCYTE ESTERASE,URINE NEGATIVE (Negative); NITRITE,URINE NEGATIVE (Negative); OCCULT BLOOD,URINE 1+ (Negative); PROTEIN,URINE NEGATIVE (Negative); UROBILINOGEN,URINE 0.2 (0.2-1.0)
[2023-08-20] MEDS ORDERED: Colchicine 0.6 MG Tab PO ONE (20:49)
[2023-08-20 21:17] LABS: SQUAMOUS EPITHELIAL CELLS,UR 0-5 /hpf (0-5); WBC,URINE 0-5 /hpf (0-5)
[2023-08-20 21:18] LABS: BACTERIA,URINE FEW /hpf (FEW); MUCUS,URINE FEW /hpf (FEW)
[2023-08-20 21:49] VITALS: BP 135/90; PULSE 88
== END 2023-08-20 20:45 | disposition home or self-care (01) ==
LOC: JD.ED 18:18
DX: I30.9 Acute pericarditis, unspecified (principal); R94.6 Abnormal results of thyroid function studies; J44.9 Chronic obstructive pulmonary disease, unspecified; K21.9 Gastro-esophageal reflux disease without esophagitis; N18.9 Chronic kidney disease, unspecified; Z87.891 Personal history of nicotine dependence; Z79.899 Other long term (current) drug therapy; Z79.82 Long term (current) use of aspirin; Z88.5 Allergy status to narcotic agent
CPT/HCPCS: 0240U; 36415; 71046; 71046-26; 80053; 81001; 83735; 83880; 84439; 84443; 84484; 85025; 85652; 86140; 93005; 93010; 96365; 96375; 99284; 99285-25; J0696; J1885; J3490